=== PATIENT | male | born 1990 | race Asian ===

== ENCOUNTER 2018-06-07 09:55 | Emergency (ER) | payer OTHER ==
[2018-06-07 10:15] VITALS: BP 114/82
--- NOTE | 2018-06-07 11:23 | EDPHY ---
H & P Time Seen by Provider: 06/07/18 10:27 HPI/ROS: CHIEF COMPLAINT: Facial laceration HISTORY OF PRESENT ILLNESS: 28-year-old male presents to the emergency department laceration to his face. The patient was at home and he was getting out of the shower and slipped and fell and hit his face on the counter. He did not lose consciousness. He denies a headache. He presented to the emergency department this morning for evaluation for sutures. Denies neck or back pain. Denies chest pain or difficulty breathing. He believes his tetanus shot is current. REVIEW OF SYSTEMS: Constitutional: No fever, no chills. Eyes: No double or blurry vision. ENT: No sore throat. Respiratory: No cough, no shortness of breath. Cardiac: No chest pain. Gastrointestinal: No abdominal pain, vomiting or diarrhea. Genitourinary: No dysuria. Musculoskeletal: No neck or back pain. Skin: Facial laceration. No rashes. Neurological: No headache. Past Medical/Surgical History: Negative Social History: From [place], professor at [employer] Smoking Status: Never smoked Physical Exam: General Appearance: Alert, no distress. Eyes: Pupils equal and round. Extraocular motions are all intact. ENT: Mouth: Mucous membranes moist. Respiratory: No wheezing, rhonchi, or rales, lungs are clear to auscultation. Cardiovascular: Regular rate and rhythm. Gastrointestinal: Abdomen is soft and nontender, no masses, no rebound or guarding, bowel sounds normal. Neurological: Alert and oriented x 3, cranial nerves II through XII grossly intact Skin: 2 cm right lateral cheek laceration. No palpable bony tenderness. Warm and dry, no rashes. Musculoskeletal: Nontender to palpate along the cervical, thoracic or lumbar spine. Neck is supple. Extremities: Full range of motion and no peripheral edema. Psychiatric: Patient is oriented X 3, there is no agitation. Constitutional: Initial Vital Signs Temperature (C) 37 C 06/07/18 10:14 Heart Rate 56 L 06/07/18 10:14 Respiratory Rate 17 06/07/18 10:14 Blood Pressure 114/82 H 06/07/18 10:14 O2 Sat (%) 96 06/07/18 10:14 O2 Delivery Mode Room Air Allergies/Adverse Reactions: No Known Allergies Allergy (Verified 06/07/18 10:12) Home Medications: Medication Instructions Recorded IBUPROFEN 04/30/16 Medical Decision Making Procedures: Laceration repair. Verbal consent was obtained from the patient. The 2 cm laceration on the right cheek was anesthetized using 1% lidocaine with epinephrine. The wound was irrigated with saline, draped and explored to its base with a gloved finger. There were no deep structures involved. The wound was repaired with 6 0 Prolene , 5 sutures. The wound repair was simple. The procedure was performed by myself. ED Course/Re-evaluation: 28-year-old male presents with laceration to his right cheek. The wound was repaired, see procedure note. Patient was given wound care precautions. Differential Diagnosis: Including but not limited to laceration, facial fracture, intracranial hemorrhage, contusion Departure - Departure Disposition: Home, Routine, Self-Care Clinical Impression: Laceration of right cheek Qualifiers: Encounter type: initial encounter Qualified Code(s): S01.411A - Laceration without foreign body of right cheek and temporomandibular area, initial encounter Condition: Good Instructions: Laceration (ED), Care For Your Stitches (ED), Acute Wounds (ED) Additional Instructions: Wound Care Follow-Up: Removal of sutures in 5 days. Suture removal is complimentary in uncomplicated cases. Infection or abnormal findings would require reevaluation by the MD. In that case, you may be billed. Ibuprofen 600 mg every 8 hr as needed for pain. Return if you notice any signs or symptoms of infection such as redness, swelling, increased pain, fever, purulent drainage. 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
== END 2018-06-07 11:34 | disposition home or self-care (01) ==
PROC: 0HQ1XZZ Repair Face Skin, External Approach (ICD-10-PCS; principal; 2018-06-07)
DX: S01.411A Laceration without foreign body of right cheek and temporomandibular area, initial encounter (principal); W01.198A Fall on same level from slipping, tripping and stumbling with subsequent striking against other object, initial encounter; Y93.E1 Activity, personal bathing and showering; Y92.002 Bathroom of unspecified non-institutional (private) residence as the place of occurrence of the external cause